=== PATIENT | female | born 1935 | race Caucasian/White ===

== ENCOUNTER 2017-02-01 16:11 | Inpatient (IN) | payer MEDICARE, BC ==
[2017-02-01] MEDS ORDERED: Ondansetron 4 MG Tab.DIS PO PRN (16:33)
[2017-02-01] MEDS ORDERED: Zolpidem 5 MG Tab PO PRN (16:33)
--- NOTE | 2017-02-01 17:21 | PCM.HP ---
H&P History of Present Illness - General Date of Service: 02/01/17 Admit Problem/Dx: Admission Diagnosis/Problem Admission Diagnosis/Problem Dyspnea Source of Information: Patient - History of Present Illness Initial Comments - Free Text/Narative: The patient is an 81-year-old lady with a history of hypertension. The patient has been complaining of increased lower extremity swelling which is moderate to severe associated with shortness of breath. Shortness of breath is worse with activity better with rest. She was seen by her primary care physician last Wednesday and was given diuretics but the swelling did not change significantly. She was noted to have atrial fibrillation in the clinic she is apparently a new finding. She denies cough, no fever no chest pain no abdominal pain. She lives independently in her home. - Related Data Allergies/Adverse Reactions: Allergies Allergy/AdvReac Type Severity Reaction Status Date / Time No Known Allergies Allergy Verified 02/01/17 16:48 Home Medications: Home Meds Aspirin [Alan Chewable] 81 mg PO DAILY 05/09/13 [History] Lisinopril 20 mg PO BID 05/09/13 [History] amLODIPine [Norvasc] 5 mg PO DAILY 05/09/13 [History] Acetaminophen [Acetaminophen Extra Strength] 1,000 mg PO BEDTIME 02/01/17 [ History] Acetaminophen [Acetaminophen Extra Strength] 1,000 mg PO DAILY 02/01/17 [History ] Ascorbate Calcium [Vitamin C] 500 mg PO BEDTIME 02/01/17 [History] Calc/D3/Mag/Zn/[employer]/[place] [Calcium 600 MG Plus Vit D] 600 mg PO BEDTIME [History] Escitalopram [Lexapro] 10 mg PO DAILY 02/01/17 [History] Multivitamin [One Daily] 1 each PO BEDTIME 02/01/17 [History] Polyethylene Glycol 3350 [MiraLAX] 8.5 gm PO BID 02/01/17 [History] Past Medical History HEENT History: Reports: Impaired Vision Cardiovascular History: Reports: High Cholesterol, Hypertension - Past Surgical History Musculoskeletal Surgical History: Reports: Knee Replacement Social & Family History - Family History Family Medical History: Noncontributory - Tobacco Use Smoking Status *Q: Never Smoker Second Hand Smoke Exposure: No - Caffeine Use Caffeine Use: Reports: Soda - Alcohol Use Days Per Week of Alcohol Use: 0 - Recreational Drug Use Recreational Drug Use: No H&P Review of Systems - Review of Systems: Review Of Systems: See Below General: Denies: Fever Pulmonary: Reports: Shortness of Breath. Denies: Wheezing, Pleuritic Chest Pain , Cough, Sputum Cardiovascular: Reports: Edema. Denies: Chest Pain Gastrointestinal: Denies: Abdominal Pain Genitourinary: Denies: Dysuria Exam - Exam Exam: See Below - Vital Signs Vital Signs: Last Vital Signs Temp 36.3 C 02/01/17 16:45 Pulse 86 02/01/17 16:45 Resp 20 02/01/17 16:45 BP 115/97 H 02/01/17 16:45 Pulse Ox 96 02/01/17 16:45 Weight: 95.164 kg - Exam General: Alert, Oriented Neck: Supple Lungs: Decreased Breath Sounds, Rales (b/l) Cardiovascular: Irregular Rhythm, Tachycardia GI/Abdominal Exam: Normal Bowel Sounds, Soft, Non-Tender, No Organomegaly, No Distention Extremities: Pedal Edema (b/l 3+ ) Skin: Warm, Dry Neuro Extensive - Mental Status: Alert, Oriented x3 Psychiatric: Alert, Normal Affect, Normal Mood - Patient Data Lab Results Last 24 hrs: Laboratory Results - last 24 hr 02/01/17 02/01/17 Range/Units 16:50 16:50 WBC 7.5 (5.0-10.0) 10^3/uL RBC 4.39 (4.2-5.4) 10^6/uL Hgb 13.8 (12.0-16.0) g/dL Hct 41.7 (37.0-47.0) % MCV 95.0 (80-100) fL MCH 31.4 (27.0-34.0) pg MCHC 33.1 (33.0-35.0) g/dL Plt Count 192 (150-450) 10^3/uL Neut % (Auto) 62.6 (42.2-75.2) % Lymph % (Auto) 24.8 (20.5-50.1) % [place] % (Auto) 10.6 H (2-8) % Eos % (Auto) 1.5 (1.0-3.0) % Baso % (Auto) 0.5 (0.0-1.0) % B-Natriuretic Peptide 207 H (0-100) pg/ml Result Diagrams: 08/28/17 16:50 02/01/17 16:50 Imaging Impressions Last 24 hrs: cxr per my reading shows cardiomegaly, b/l effusion ekg: per my reading shows rapid Afib with hr 150s labs from clini were reviewed: tsh normal , cr: 0.9 *Q Meaningful Use (ADM) - VTE *Q VTE Criteria *Q: - Stroke *Q Stroke Criteria *Q: - AMI *Q AMI Criteria *Q: - Problem List (1) Afib SNOMED Code(s): 70403222 ICD Code: I48.91 - UNSPECIFIED ATRIAL FIBRILLATION Status: Acute Current Visit: Yes (2) Tachycardia SNOMED Code(s): 6253449 ICD Code: R00.0 - TACHYCARDIA, UNSPECIFIED Status: Acute Current Visit: Yes (3) Edema SNOMED Code(s): 216444748, 429090441 ICD Code: R60.9 - EDEMA, UNSPECIFIED Status: Acute Current Visit: Yes (4) CHF (congestive heart failure) SNOMED Code(s): 39475929 ICD Code: I50.9 - HEART FAILURE, UNSPECIFIED Status: Acute Current Visit : Yes (5) HTN (hypertension) SNOMED Code(s): 23933348 ICD Code: I10 - ESSENTIAL (PRIMARY) HYPERTENSION Status: Acute Current Visit: Yes Problem List Initiated/Reviewed/Updated: Yes Orders Last 24hrs: Active Orders 24 hr Category Date Time Status Patient Status [ADT] Routine ADT 02/01/17 16:33 Active Antiembolic Devices [RC] PER UNIT ROUTINE Care 02/01/17 16:34 Active EKG Documentation Completion [RC] ROUTINE Care 02/01/17 16:31 Active Oxygen Therapy [RC] PRN Care 02/01/17 16:33 Active Peripheral IV Care [RC] . DIRECTED Care 02/01/17 16:34 Active Telemetry Monitoring [Cardiac Monitoring] [RC] . Care 02/01/17 16:32 Active DIRECTED Up With Assistance [RC] ASDIRECTED Care 02/01/17 16:33 Active VTE/DVT Education [RC] PER UNIT ROUTINE Care 02/01/17 16:33 Active Vital Signs [RC] Q4H Care 02/01/17 16:33 Active 2 Gram Sodium Diet [DIET] Diet 02/01/17 Dinner Active Chest 1V Frontal [CR] Routine Exams 02/01/17 16:31 Taken Echo Comp wo Cont [US] Routine Exams 02/02/17 09:00 Ordered B-TYPE NATRIURETIC PEPTIDE,BNP [CHEM] Routine Lab 02/01/17 16:50 Received BASIC METABOLIC PANEL,BMP [CHEM] AM Lab 02/02/17 05:15 Ordered BASIC METABOLIC PANEL,BMP [CHEM] Routine Lab 02/01/17 16:50 Received CBC WITH AUTO DIFF [HEME] AM Lab 02/02/17 05:15 Ordered INR,PT,PROTHROMBIN TIME [COAG] AM Lab 02/03/17 05:11 Ordered INR,PT,PROTHROMBIN TIME [COAG] AM Lab 02/04/17 05:11 Ordered INR,PT,PROTHROMBIN TIME [COAG] AM Lab 02/05/17 05:11 Ordered INR,PT,PROTHROMBIN TIME [COAG] AM Lab 02/06/17 05:11 Ordered INR,PT,PROTHROMBIN TIME [COAG] AM Lab 02/07/17 05:11 Ordered TROPONIN I [CHEM] Routine Lab 02/01/17 16:50 Received Acetaminophen [Tylenol Extra Strength] Med 02/01/17 21:00 Ordered 1,000 mg PO BEDTIME Acetaminophen [Tylenol Extra Strength] Med 02/02/17 09:00 Ordered 1,000 mg PO DAILY Acetaminophen [Tylenol] Med 02/01/17 16:33 Active 650 mg PO Q4H PRN Ascorbate Calcium [Vitamin C] Med 02/01/17 21:00 Ordered 500 mg PO BEDTIME Aspirin Med 02/02/17 09:00 Ordered 81 mg PO DAILY Escitalopram [Lexapro] Med 02/02/17 09:00 Ordered 10 mg PO DAILY Furosemide [Lasix] Med 02/01/17 21:00 Ordered 20 mg IVPUSH TID Heparin Sodium Med 02/01/17 22:00 Active 5,000 units SUBCUT Q8HR Lisinopril [Prinivil] Med 02/01/17 21:00 Ordered 20 mg PO BID Metoprolol Tartrate [Lopressor] Med 02/01/17 21:00 Ordered 25 mg PO BID Multivitamin [One Daily] Med 02/01/17 21:00 Ordered 1 each PO BEDTIME Ondansetron [Zofran ODT] Med 02/01/17 16:33 Active 4 mg PO Q6H PRN Polyethylene Glycol 3350 [MiraLAX] Med 02/01/17 21:00 Ordered 8.5 gm PO BID Potassium Chloride [Klor-Con 10] Med 02/02/17 07:00 Ordered 20 meq PO WITHBREAKFAST Sodium Chloride 0.9% [Saline Flush] Med 02/01/17 16:33 Active 10 ml FLUSH ASDIRECTED PRN Warfarin Pharmacy to Dose [Pharmacy to Dose - Warfarin] Med 02/02/17 08:00 Ordered 1 dose .XX ASDIRECTED Zolpidem [Ambien] Med 02/01/17 16:33 Active 5 mg PO BEDTIME PRN oxyCODONE Med 02/01/17 16:33 Active 5 mg PO Q4H PRN Antiembolic Hose [OM.PC] Per Unit Routine Oth 02/01/17 16:34 Ordered Peripheral IV Insertion Adult [OM.PC] Routine Oth 02/01/17 16:33 Ordered Saline Lock Insert [OM.PC] Routine Oth 02/01/17 16:33 Ordered Resuscitation Status Routine Resus Stat 02/01/17 16:33 Ordered Medication Orders Acetaminophen (Tylenol) 650 mg PO Q4H PRN PRN Reason: Pain (Mild 1-3)/fever Acetaminophen (Tylenol Extra Strength) 1,000 mg PO BEDTIME [facility] Acetaminophen (Tylenol Extra Strength) 1,000 mg PO DAILY@1400 [facility] Aspirin (Aspirin) 81 mg PO DAILY [facility] Escitalopram Oxalate (Lexapro) 10 mg PO DAILY [facility] Furosemide (Lasix) 20 mg IVPUSH TID RAD[facility] Heparin Sodium (Porcine) (Heparin Sodium) 5,000 units SUBCUT Q8HR [facility] Lisinopril (Prinivil) 20 mg PO BID [facility] Metoprolol Tartrate (Lopressor) 25 mg PO BID [facility] Non-Formulary Medication (Ascorbate Calcium [Vitamin C]) 500 mg PO BEDTIME RAD[facility] Non-Formulary Medication (Multivitamin [One Daily]) 1 each PO BEDTIME RAD[facility] Ondansetron HCl (Zofran Odt) 4 mg PO Q6H PRN PRN Reason: nausea, able to take PO Oxycodone HCl (Oxycodone) 5 mg PO Q4H PRN PRN Reason: Pain (moderate 4-6) Polyethylene Glycol (Miralax) 8.5 gm PO BID RADHA Potassium Chloride (Klor-Con 10) 20 meq PO WITHBREAKFAST RAD[facility] Sodium Chloride (Saline Flush) 10 ml FLUSH ASDIRECTED PRN PRN Reason: Keep Vein Open Warfarin Sodium (Pharmacy To Dose - Warfarin) 1 dose .XX ASDIRECTED [facility] Zolpidem Tartrate (Ambien) 5 mg PO BEDTIME PRN PRN Reason: Sleep Assessment/Plan Comment:: The patient is an 81-year-old lady with a history of hypertension. The patient has been complaining of increased lower extremity swelling which is moderate to severe associated with shortness of breath. Shortness of breath is worse with activity better with rest. She was seen by her primary care physician last Wednesday and was given diuretics but the swelling did not change significantly. She was noted to have atrial fibrillation in the clinic she is apparently a new finding. She denies cough, no fever no chest pain no abdominal pain. She lives independently in her home. #1 massive lower extremity edema, cardiomegaly, bilateral pleural effusion Likely due to acute congestive heart failure Will obtain an echocardiogram for further characterization Will start IV Lasix 3 times a day Add potassium supplement Follow electrolytes and renal function test with that Continue BIJU inhibitor #2 rapid atrial fibrillation This might be the reason for the congestive heart failure Will start metoprolol for rate control Monitor on telemetry and adjust metoprolol as needed #3 thromboembolic risk with atrial fibrillation Start the patient on Coumadin We will stop the heparin when the INR is coming up #4 hypertension Will continue lisinopril Stop Norvasc to make space for diuretics and beta moy #5 DVT prophylaxis will be with heparin Stop the heparin when INR is coming up #6 CODE STATUS was discussed with the patient. She would like to be DNR.
[2017-02-01] MEDS ORDERED: Metoprolol Tartrate 25 MG Tab PO ONE (18:05)
[2017-02-01] MEDS ORDERED: Metoprolol Tartrate 5 MG/5 ML SDV IVPUSH ONE ×2 (18:27→19:31)
[2017-02-01] MEDS: Acetaminophen 325 MG Tab PO PRN (19:28)
[2017-02-01] MEDS: Sodium Chloride 0.9% 10 ML Syringe FLUSH PRN (19:48)
[2017-02-01] MEDS: oxyCODONE 5 MG Tab PO PRN (20:37)
[2017-02-01] MEDS: Lisinopril 20 MG Tab PO SCH (20:38)
[2017-02-01] MEDS: Ascorbic Acid 500 MG Tab PO SCH (20:39)
[2017-02-01] MEDS: Multivitamins,Therapeutic Tab PO SCH (20:39)
[2017-02-01] MEDS: Polyethylene Glycol 3350 Powder 17 GM Packet PO SCH (20:42)
[2017-02-01] MEDS: Furosemide 20 MG/2 ML VIAL IVPUSH SCH (20:43)
[2017-02-01] MEDS: Acetaminophen 500 MG Tab PO SCH (20:43)
[2017-02-01] MEDS ORDERED: Metoprolol Tartrate 25 MG Tab PO SCH (21:00)
[2017-02-01] MEDS ORDERED: Aspirin 81 MG Tab.Chew PO ONE (21:43)
[2017-02-01] MEDS ORDERED: Heparin Sodium 5,000 Units/ML Vial SUBCUT SCH (22:00)
[2017-02-02] MEDS: oxyCODONE 5 MG Tab PO PRN ×2 (00:36→05:18)
[2017-02-02] MEDS ORDERED: Metoprolol Tartrate 5 MG/5 ML SDV IVPUSH ONE ×2 (01:41→07:21)
[2017-02-02] MEDS: Sodium Chloride 0.9% 10 ML Syringe FLUSH PRN ×2 (02:08→08:00)
[2017-02-02] MEDS: Heparin Sodium/D5W 25,000 UNITS/500 ML BAG IV SCH (02:29)
[2017-02-02] MEDS: Acetaminophen 325 MG Tab PO PRN (03:55)
[2017-02-02] MEDS: Potassium Chloride 10 MEQ Tab.ER PO SCH ×2 (06:30→07:37)
[2017-02-02] MEDS: Lisinopril 20 MG Tab PO SCH (08:00)
[2017-02-02] MEDS: Metoprolol Tartrate 25 MG Tab PO SCH ×2 (08:00→20:08)
[2017-02-02] MEDS: Polyethylene Glycol 3350 Powder 17 GM Packet PO SCH ×2 (09:39→20:07)
[2017-02-02] MEDS: Escitalopram 10 MG Tab PO SCH (09:39)
[2017-02-02] MEDS: Furosemide 20 MG/2 ML VIAL IVPUSH SCH ×2 (09:39→20:08)
[2017-02-02] MEDS: Aspirin 81 MG Tab.Chew PO SCH (09:39)
[2017-02-02] MEDS ORDERED: Digoxin 500 MCG/2 ML Amp IVPUSH ONE ×2 (11:08→18:00)
--- NOTE | 2017-02-02 11:17 | PCM.PN ---
- General Info Date of Service: 02/02/17 Admission Dx/Problem (Free Text): Admission Diagnosis/Problem Admission Diagnosis/Problem Dyspnea Subjective Update: Overnight continue to be tachycardic. Received multiple doses of IV metoprolol along with oral metoprolol. Continues to have significant leg swelling, mild shortness of breath. [place] some chest discomfort in the evening received aspirin. Was started on IV heparin drip. No chest pain this morning, no abdominal pain, no cough, no fever. - Review of Systems General: Reports: Weakness. Denies: Fever Pulmonary: Reports: Shortness of Breath Cardiovascular: Reports: Edema. Denies: Chest Pain Gastrointestinal: Denies: Abdominal Pain Genitourinary: Denies: Dysuria - Patient Data Vitals - Most Recent: Last Vital Signs Temp 36.5 C 02/02/17 10:41 Pulse 84 02/02/17 10:41 Resp 20 02/02/17 10:41 BP 92/75 02/02/17 10:41 Pulse Ox 97 02/02/17 10:41 Weight - Most Recent: 95.164 kg I&O - Last 24 Hours: Intake & Output 02/01/17 02/02/17 02/02/17 22:59 06:59 14:59 Intake Total 515 Output Total 475 600 Balance -475 -85 Lab Results Last 24 Hours: Laboratory Results - last 24 hr 02/01/17 02/01/17 02/02/17 Range/Units 16:50 16:50 02:40 WBC 7.5 (5.0-10.0) 10^3/uL RBC 4.39 (4.2-5.4) 10^6/uL Hgb 13.8 (12.0-16.0) g/dL Hct 41.7 (37.0-47.0) % MCV 95.0 (80-100) fL MCH 31.4 (27.0-34.0) pg MCHC 33.1 (33.0-35.0) g/dL Plt Count 192 (150-450) 10^3/uL Neut % (Auto) 62.6 (42.2-75.2) % Lymph % (Auto) 24.8 (20.5-50.1) % [place] % (Auto) 10.6 H (2-8) % Eos % (Auto) 1.5 (1.0-3.0) % Baso % (Auto) 0.5 (0.0-1.0) % PT (9.0-12.0) SEC INR (0.9-1.2) APTT 28.2 (22.0-34.0) SEC Sodium 137 (135-145) mmol/L Potassium 4.5 (3.6-5.0) mmol/L Chloride 101 (101-111) mmol/L Carbon Dioxide 25.0 (21.0-31.0) mmol/L Anion Gap 15.5 BUN 20 H (7-18) mg/dL Creatinine 1.0 (0.6-1.3) mg/dL Est Cr Clr Drug Dosing 43.00 mL/min Estimated GFR (MDRD) 53 Glucose 101 (74-105) mg/dL Calcium 9.5 (8.4-10.2) mg/dl Troponin I 0.02 (0.00-0.02) ng/ml B-Natriuretic Peptide 207 H (0-100) pg/ml 02/02/17 02/02/17 02/02/17 Range/Units 08:35 08:35 08:35 WBC 7.3 (5.0-10.0) 10^3/uL RBC 4.11 L (4.2-5.4) 10^6/uL Hgb 13.0 (12.0-16.0) g/dL Hct 39.5 (37.0-47.0) % MCV 96.1 (80-100) fL MCH 31.6 (27.0-34.0) pg MCHC 32.9 L (33.0-35.0) g/dL Plt Count 166 (150-450) 10^3/uL Neut % (Auto) 74.3 (42.2-75.2) % Lymph % (Auto) 16.4 L (20.5-50.1) % [place] % (Auto) 8.2 H (2-8) % Eos % (Auto) 0.7 L (1.0-3.0) % Baso % (Auto) 0.4 (0.0-1.0) % PT (9.0-12.0) SEC INR (0.9-1.2) APTT 79.5 H (22.0-34.0) SEC Sodium 132 L (135-145) mmol/L Potassium 5.2 H (3.6-5.0) mmol/L Chloride 98 L (101-111) mmol/L Carbon Dioxide 25.0 (21.0-31.0) mmol/L Anion Gap 14.2 BUN 23 H (7-18) mg/dL Creatinine 1.0 (0.6-1.3) mg/dL Est Cr Clr Drug Dosing 43.00 mL/min Estimated GFR (MDRD) 53 Glucose 141 H (74-105) mg/dL Calcium 8.9 (8.4-10.2) mg/dl Troponin I (0.00-0.02) ng/ml B-Natriuretic Peptide (0-100) pg/ml 02/02/17 Range/Units 08:35 WBC (5.0-10.0) 10^3/uL RBC (4.2-5.4) 10^6/uL Hgb (12.0-16.0) g/dL Hct (37.0-47.0) % MCV (80-100) fL MCH (27.0-34.0) pg MCHC (33.0-35.0) g/dL Plt Count (150-450) 10^3/uL Neut % (Auto) (42.2-75.2) % Lymph % (Auto) (20.5-50.1) % [place] % (Auto) (2-8) % Eos % (Auto) (1.0-3.0) % Baso % (Auto) (0.0-1.0) % PT 11.5 (9.0-12.0) SEC INR 1.1 (0.9-1.2) APTT (22.0-34.0) SEC Sodium (135-145) mmol/L Potassium (3.6-5.0) mmol/L Chloride (101-111) mmol/L Carbon Dioxide (21.0-31.0) mmol/L Anion Gap BUN (7-18) mg/dL Creatinine (0.6-1.3) mg/dL Est Cr Clr Drug Dosing mL/min Estimated GFR (MDRD) Glucose (74-105) mg/dL Calcium (8.4-10.2) mg/dl Troponin I (0.00-0.02) ng/ml B-Natriuretic Peptide (0-100) pg/ml Med Orders - Current: Current Medications Acetaminophen (Tylenol) 650 mg PO Q4H PRN PRN Reason: Pain (Mild 1-3)/fever Last Admin: 02/02/17 03:55 Dose: 650 mg Acetaminophen (Tylenol Extra Strength) 1,000 mg PO BEDTIME [facility] Last Admin: 02/01/17 20:43 Dose: Not Given Acetaminophen (Tylenol Extra Strength) 1,000 mg PO DAILY@1400 [facility] Ascorbic Acid (Vitamin C) 500 mg PO BEDTIME [facility] Last Admin: 02/01/17 20:39 Dose: 500 mg Aspirin (Aspirin) 81 mg PO DAILY [facility] Last Admin: 02/02/17 09:39 Dose: 81 mg Digoxin (Lanoxin) 250 mcg IVPUSH ONETIME ONE Stop: 02/02/17 18:01 Digoxin (Lanoxin) 125 mcg PO DAILY [facility] Escitalopram Oxalate (Lexapro) 10 mg PO DAILY [facility] Last Admin: 02/02/17 09:39 Dose: 10 mg Furosemide (Lasix) 20 mg IVPUSH BID [facility] Heparin Sodium/Dextrose (Heparin 25,000 Units In D5w 500 Ml) 25,000 units in 500 mls @ 0 mls/hr IV TITRATE RADHA; 12 UNITS/KG/HR PRN Reason: Protocol Last Titration: 02/02/17 09:32 Dose: 9.98 units/kg/hr, 19 mls/hr Metoprolol Tartrate (Lopressor) 50 mg PO BID [facility] Last Admin: 02/02/17 08:00 Dose: 50 mg Multivitamins (Thera) 1 each PO BEDTIME [facility] Last Admin: 02/01/17 20:39 Dose: 1 each Ondansetron HCl (Zofran Odt) 4 mg PO Q6H PRN PRN Reason: nausea, able to take PO Last Admin: 02/02/17 07:16 Dose: 4 mg Oxycodone HCl (Oxycodone) 5 mg PO Q4H PRN PRN Reason: Pain (moderate 4-6) Last Admin: 02/02/17 05:18 Dose: 5 mg Polyethylene Glycol (Miralax) 8.5 gm PO BID [facility] Last Admin: 02/02/17 09:39 Dose: 8.5 gm Potassium Chloride (Klor-Con 10) 20 meq PO WITHBREAKFAST [facility] Last Admin: 02/02/17 07:37 Dose: Not Given Sodium Chloride (Saline Flush) 10 ml FLUSH ASDIRECTED PRN PRN Reason: Keep Vein Open Last Admin: 02/02/17 08:00 Dose: 10 ml Warfarin Sodium (Pharmacy To Dose - Warfarin) 1 dose .XX ASDIRECTED [facility] Warfarin Sodium (Coumadin) 5 mg PO ONETIME ONE Stop: 02/02/17 14:01 Zolpidem Tartrate (Ambien) 5 mg PO BEDTIME PRN PRN Reason: Sleep Discontinued Medications Aspirin (Aspirin) 324 mg PO ONETIME ONE Stop: 02/01/17 21:44 Last Admin: 02/01/17 22:00 Dose: 324 mg Digoxin (Lanoxin) 500 mcg IVPUSH ONETIME ONE Stop: 02/02/17 11:09 Furosemide (Lasix) 20 mg IVPUSH TID [facility] Last Admin: 02/02/17 09:39 Dose: 20 mg Heparin Sodium (Porcine) (Heparin Sodium) 5,000 units SUBCUT Q8HR [facility] Last Admin: 02/01/17 21:36 Dose: 5,000 units Lisinopril (Prinivil) 20 mg PO BID [facility] Last Admin: 02/02/17 08:00 Dose: Not Given Metoprolol Tartrate (Lopressor) 25 mg PO BID [facility] Last Admin: 02/01/17 20:38 Dose: 25 mg Metoprolol Tartrate (Lopressor) 25 mg PO ONETIME ONE Stop: 02/01/17 18:06 Last Admin: 02/01/17 18:20 Dose: 25 mg Metoprolol Tartrate (Lopressor) 2.5 mg IVPUSH ONETIME ONE Stop: 02/01/17 18:28 Last Admin: 02/01/17 18:38 Dose: 2.5 mg Metoprolol Tartrate (Lopressor) 2.5 mg IVPUSH ONETIME ONE Stop: 02/01/17 19:32 Last Admin: 02/01/17 19:49 Dose: 2.5 mg Metoprolol Tartrate (Lopressor) 5 mg IVPUSH ONETIME ONE Stop: 02/02/17 01:42 Last Admin: 02/02/17 02:08 Dose: 5 mg Metoprolol Tartrate (Lopressor) 5 mg IVPUSH ONETIME ONE Stop: 02/02/17 07:22 Last Admin: 02/02/17 07:58 Dose: 5 mg - Exam General: Alert, Oriented Neck: Supple Lungs: Normal Respiratory Effort, Rales (Basilar) Cardiovascular: Irregular Rhythm, Tachycardia GI/Abdominal Exam: Normal Bowel Sounds, Soft, Non-Tender Extremities: Pedal Edema (Bilateral 2-3+) - Problem List & Annotations (1) Afib SNOMED Code(s): 62916588 Code(s): I48.91 - UNSPECIFIED ATRIAL FIBRILLATION Status: Acute Current Visit: Yes (2) Tachycardia SNOMED Code(s): 3505403 Code(s): R00.0 - TACHYCARDIA, UNSPECIFIED Status: Acute Current Visit: Yes (3) Edema SNOMED Code(s): 238053315, 826806958 Code(s): R60.9 - EDEMA, UNSPECIFIED Status: Acute Current Visit: Yes (4) CHF (congestive heart failure) SNOMED Code(s): 74252821 Code(s): I50.9 - HEART FAILURE, UNSPECIFIED Status: Acute Current Visit: Yes (5) HTN (hypertension) SNOMED Code(s): 43083915 Code(s): I10 - ESSENTIAL (PRIMARY) HYPERTENSION Status: Acute Current Visit: Yes - Problem List Review Problem List Initiated/Reviewed/Updated: Yes - My Orders Last 24 Hours: My Active Orders 02/01/17 16:32 Telemetry Monitoring [Cardiac Monitoring] [RC] 02/01/17 16:33 Patient Status [ADT] Routine Oxygen Therapy [RC] PRN Up With Assistance [RC] ASDIRECTED Vital Signs [RC] Q4H Acetaminophen [Tylenol] 650 mg PO Q4H PRN Ondansetron [Zofran ODT] 4 mg PO Q6H PRN Sodium Chloride 0.9% [Saline Flush] 10 ml FLUSH ASDIRECTED PRN Zolpidem [Ambien] 5 mg PO BEDTIME PRN oxyCODONE 5 mg PO Q4H PRN Peripheral IV Insertion Adult [OM.PC] Routine Saline Lock Insert [OM.PC] Routine 02/01/17 16:34 Antiembolic Devices [RC] PER UNIT ROUTINE Antiembolic Hose [OM.PC] Per Unit Routine 02/01/17 17:27 Code Status [Resuscitation Status] Routine 02/01/17 21:00 Acetaminophen [Tylenol Extra Strength] 1,000 mg PO BEDTIME Ascorbic Acid [Vitamin C] 500 mg PO BEDTIME Multivitamins,Therapeutic [Thera] 1 each PO BEDTIME Polyethylene Glycol 3350 [MiraLAX] 8.5 gm PO BID 02/01/17 Dinner 2 Gram Sodium Diet [DIET] 02/02/17 01:41 Metoprolol Tartrate [Lopressor] 50 mg PO BID 02/02/17 01:45 Heparin Sodium/D5W [Heparin 25,000 Units in D5W 500 ML] 25,000 units in 500 ml IV TITRATE 02/02/17 07:00 Potassium Chloride [Klor-Con 10] 20 meq PO WITHBREAKFAST 02/02/17 07:22 Communication Order [RC] ONETIME 02/02/17 08:00 Warfarin Pharmacy to Dose [Pharmacy to Dose - Warfarin] 1 dose .XX ASDIRECTED 02/02/17 09:00 Aspirin 81 mg PO DAILY Escitalopram [Lexapro] 10 mg PO DAILY 02/02/17 14:00 Acetaminophen [Tylenol Extra Strength] 1,000 mg PO DAILY@1400 Warfarin [Coumadin] 5 mg PO ONETIME ONE 02/02/17 15:00 BASIC METABOLIC PANEL,BMP [CHEM] Timed 02/02/17 15:30 PTT,PARTIAL THROMBOPLSTIN TIME [COAG] Routine 02/02/17 18:00 Digoxin [Lanoxin] 250 mcg IVPUSH ONETIME ONE 02/02/17 21:00 Furosemide [Lasix] 20 mg IVPUSH BID 02/03/17 05:11 INR,PT,PROTHROMBIN TIME [COAG] AM 02/03/17 05:15 BASIC METABOLIC PANEL,BMP [CHEM] AM CBC WITH AUTO DIFF [HEME] AM 02/03/17 09:00 Digoxin [Lanoxin] 125 mcg PO DAILY 02/04/17 05:11 INR,PT,PROTHROMBIN TIME [COAG] AM 02/05/17 05:11 INR,PT,PROTHROMBIN TIME [COAG] AM 02/06/17 05:11 INR,PT,PROTHROMBIN TIME [COAG] AM 02/07/17 05:11 INR,PT,PROTHROMBIN TIME [COAG] AM - Plan Plan:: The patient is an 81-year-old lady with a history of hypertension. The patient has been complaining of increased lower extremity swelling which is moderate to severe associated with shortness of breath. Shortness of breath is worse with activity better with rest. She was seen by her primary care physician last Wednesday and was given diuretics but the swelling did not change significantly. She was noted to have atrial fibrillation in the clinic which is apparently a new finding. She denies cough, no fever no chest pain no abdominal pain. She lives independently in her home. #1 massive lower extremity edema, cardiomegaly, bilateral pleural effusion Likely due to acute congestive heart failure pending echocardiogram for further characterization Will start IV Lasix decrease to BID due to hypotension stop potassium supplement due to hyperkalemia Follow electrolytes and renal function test with that hold BIJU inhibitor due to hyoperkalemia and lower BPs Repeat basic metabolic panel to evaluate hyperkalemia in a few hours #2 rapid atrial fibrillation This might be the reason for the congestive heart failure continue IV metoprolol and PO metoprolol for rate control add digoxin - start with IV loading Monitor on telemetry and adjust metoprolol as needed #3 thromboembolic risk with atrial fibrillation Started the patient on Coumadin Started weight based heparin nomogram #4 h/o hypertension Now on the lower side Stop Norvasc Stop lisinopril #5 DVT prophylaxis will be with heparin weight-based nomogram Stop the heparin when INR is coming up #6 CODE STATUS was discussed with the patient. She would like to be DNR. Continue to monitor on telemetry
[2017-02-02] MEDS ORDERED: Warfarin 5 MG Tab PO ONE (14:00)
[2017-02-02] MEDS: Acetaminophen 500 MG Tab PO SCH ×2 (15:19→20:07)
[2017-02-02] MEDS ORDERED: Sodium Polystyrene Sulfonate 15 GM/60 ML Susp 60 ML Bot PO ONE (16:55)
[2017-02-02] MEDS: Multivitamins,Therapeutic Tab PO SCH (20:07)
[2017-02-02] MEDS: Ascorbic Acid 500 MG Tab PO SCH (20:07)
[2017-02-03] MEDS: Heparin Sodium/D5W 25,000 UNITS/500 ML BAG IV SCH (07:27)
[2017-02-03] MEDS: Polyethylene Glycol 3350 Powder 17 GM Packet PO SCH ×2 (09:37→20:54)
[2017-02-03] MEDS: Furosemide 20 MG/2 ML VIAL IVPUSH SCH ×2 (09:38→20:55)
[2017-02-03] MEDS: Metoprolol Tartrate 25 MG Tab PO SCH ×2 (09:39→20:48)
[2017-02-03] MEDS: Digoxin 125 MCG Tab PO SCH (09:39)
[2017-02-03] MEDS: Aspirin 81 MG Tab.Chew PO SCH (09:39)
[2017-02-03] MEDS: Escitalopram 10 MG Tab PO SCH (09:39)
--- NOTE | 2017-02-03 09:46 | PCM.PN ---
- General Info Date of Service: 02/03/17 Admission Dx/Problem (Free Text): Admission Diagnosis/Problem Admission Diagnosis/Problem Dyspnea Subjective Update: Tachycardia has improved. Still has episodes of tachycardia with activity. Heart rate up to 130s, Was started on digoxin Continues to have significant leg swelling, mild shortness of breath. No further chest pain. No apparent bleeding with the heparin drip No chest pain this morning, no abdominal pain, no cough, no fever. - Review of Systems General: Denies: Fever, Weakness Pulmonary: Reports: Shortness of Breath. Denies: Wheezing (Mild) Cardiovascular: Denies: Chest Pain Gastrointestinal: Denies: Abdominal Pain Genitourinary: Denies: Dysuria Neurological: Denies: Confusion - Patient Data Vitals - Most Recent: Last Vital Signs Temp 36.6 C 02/03/17 07:00 Pulse 124 H 02/03/17 09:39 Resp 20 02/03/17 07:00 BP 116/62 02/03/17 09:39 Pulse Ox 97 02/03/17 07:00 Weight - Most Recent: 95.164 kg I&O - Last 24 Hours: Intake & Output 02/02/17 02/03/17 02/03/17 22:59 06:59 14:59 Intake Total 485 185 Output Total 1000 2000 Balance -515 -1815 Lab Results Last 24 Hours: Laboratory Results - last 24 hr 02/02/17 02/02/17 02/02/17 Range/Units 08:35 15:30 15:30 WBC (5.0-10.0) 10^3/uL RBC (4.2-5.4) 10^6/uL Hgb (12.0-16.0) g/dL Hct (37.0-47.0) % MCV (80-100) fL MCH (27.0-34.0) pg MCHC (33.0-35.0) g/dL Plt Count (150-450) 10^3/uL Neut % (Auto) (42.2-75.2) % Lymph % (Auto) (20.5-50.1) % [place] % (Auto) (2-8) % Eos % (Auto) (1.0-3.0) % Baso % (Auto) (0.0-1.0) % PT 11.5 (9.0-12.0) SEC INR 1.1 (0.9-1.2) APTT 80.8 H (22.0-34.0) SEC Sodium 131 L (135-145) mmol/L Potassium 5.3 H (3.6-5.0) mmol/L Chloride 97 L (101-111) mmol/L Carbon Dioxide 26.0 (21.0-31.0) mmol/L Anion Gap 13.3 BUN 25 H (7-18) mg/dL Creatinine 1.2 (0.6-1.3) mg/dL Est Cr Clr Drug Dosing 35.83 mL/min Estimated GFR (MDRD) 43 Glucose 104 (74-105) mg/dL Calcium 8.9 (8.4-10.2) mg/dl 02/03/17 02/03/17 02/03/17 Range/Units 06:09 06:09 06:09 WBC 6.3 (5.0-10.0) 10^3/uL RBC 4.00 L (4.2-5.4) 10^6/uL Hgb 12.5 (12.0-16.0) g/dL Hct 38.7 (37.0-47.0) % MCV 96.8 (80-100) fL MCH 31.3 (27.0-34.0) pg MCHC 32.3 L (33.0-35.0) g/dL Plt Count 160 (150-450) 10^3/uL Neut % (Auto) 49.8 (42.2-75.2) % Lymph % (Auto) 34.4 (20.5-50.1) % [place] % (Auto) 11.4 H (2-8) % Eos % (Auto) 3.8 H (1.0-3.0) % Baso % (Auto) 0.6 (0.0-1.0) % PT 12.4 H (9.0-12.0) SEC INR 1.2 (0.9-1.2) APTT (22.0-34.0) SEC Sodium 134 L (135-145) mmol/L Potassium 4.4 (3.6-5.0) mmol/L Chloride 99 L (101-111) mmol/L Carbon Dioxide 26.0 (21.0-31.0) mmol/L Anion Gap 13.4 BUN 24 H (7-18) mg/dL Creatinine 1.1 (0.6-1.3) mg/dL Est Cr Clr Drug Dosing 39.09 mL/min Estimated GFR (MDRD) 47 Glucose 89 (74-105) mg/dL Calcium 8.5 (8.4-10.2) mg/dl 02/03/17 Range/Units 06:09 WBC (5.0-10.0) 10^3/uL RBC (4.2-5.4) 10^6/uL Hgb (12.0-16.0) g/dL Hct (37.0-47.0) % MCV (80-100) fL MCH (27.0-34.0) pg MCHC (33.0-35.0) g/dL Plt Count (150-450) 10^3/uL Neut % (Auto) (42.2-75.2) % Lymph % (Auto) (20.5-50.1) % [place] % (Auto) (2-8) % Eos % (Auto) (1.0-3.0) % Baso % (Auto) (0.0-1.0) % PT (9.0-12.0) SEC INR (0.9-1.2) APTT 61.3 H (22.0-34.0) SEC Sodium (135-145) mmol/L Potassium (3.6-5.0) mmol/L Chloride (101-111) mmol/L Carbon Dioxide (21.0-31.0) mmol/L Anion Gap BUN (7-18) mg/dL Creatinine (0.6-1.3) mg/dL Est Cr Clr Drug Dosing mL/min Estimated GFR (MDRD) Glucose (74-105) mg/dL Calcium (8.4-10.2) mg/dl Med Orders - Current: Current Medications Acetaminophen (Tylenol) 650 mg PO Q4H PRN PRN Reason: Pain (Mild 1-3)/fever Last Admin: 02/02/17 03:55 Dose: 650 mg Acetaminophen (Tylenol Extra Strength) 1,000 mg PO BEDTIME [facility] Last Admin: 02/02/17 20:07 Dose: 1,000 mg Acetaminophen (Tylenol Extra Strength) 1,000 mg PO DAILY@1400 [facility] Last Admin: 02/02/17 15:19 Dose: 1,000 mg Ascorbic Acid (Vitamin C) 500 mg PO BEDTIME [facility] Last Admin: 02/02/17 20:07 Dose: 500 mg Aspirin (Aspirin) 81 mg PO DAILY [facility] Last Admin: 02/03/17 09:39 Dose: 81 mg Digoxin (Lanoxin) 125 mcg PO DAILY [facility] Last Admin: 02/03/17 09:39 Dose: 125 mcg Escitalopram Oxalate (Lexapro) 10 mg PO DAILY [facility] Last Admin: 02/03/17 09:39 Dose: 10 mg Furosemide (Lasix) 20 mg IVPUSH BID [facility] Last Admin: 02/03/17 09:38 Dose: 20 mg Heparin Sodium/Dextrose (Heparin 25,000 Units In D5w 500 Ml) 25,000 units in 500 mls @ 0 mls/hr IV TITRATE [facility]; 12 UNITS/KG/HR PRN Reason: Protocol Last Admin: 02/03/17 07:27 Dose: 7.98 units/kg/hr, 15.2 mls/hr Metoprolol Tartrate (Lopressor) 75 mg PO BID [facility] Multivitamins (Thera) 1 each PO BEDTIME [facility] Last Admin: 02/02/17 20:07 Dose: 1 each Ondansetron HCl (Zofran Odt) 4 mg PO Q6H PRN PRN Reason: nausea, able to take PO Last Admin: 02/02/17 07:16 Dose: 4 mg Oxycodone HCl (Oxycodone) 5 mg PO Q4H PRN PRN Reason: Pain (moderate 4-6) Last Admin: 02/02/17 05:18 Dose: 5 mg Polyethylene Glycol (Miralax) 8.5 gm PO BID [facility] Last Admin: 02/03/17 09:37 Dose: 8.5 gm Sodium Chloride (Saline Flush) 10 ml FLUSH ASDIRECTED PRN PRN Reason: Keep Vein Open Last Admin: 02/02/17 08:00 Dose: 10 ml Warfarin Sodium (Pharmacy To Dose - Warfarin) 1 dose .XX ASDIRECTED [facility] Warfarin Sodium (Coumadin) 5 mg PO ONETIME ONE Stop: 02/03/17 14:01 Zolpidem Tartrate (Ambien) 5 mg PO BEDTIME PRN PRN Reason: Sleep Discontinued Medications Aspirin (Aspirin) 324 mg PO ONETIME ONE Stop: 02/01/17 21:44 Last Admin: 02/01/17 22:00 Dose: 324 mg Digoxin (Lanoxin) 500 mcg IVPUSH ONETIME ONE Stop: 02/02/17 11:09 Last Admin: 02/02/17 11:57 Dose: 500 mcg Digoxin (Lanoxin) 250 mcg IVPUSH ONETIME ONE Stop: 02/02/17 18:01 Last Admin: 02/02/17 17:28 Dose: 250 mcg Furosemide (Lasix) 20 mg IVPUSH TID [facility] Last Admin: 02/02/17 09:39 Dose: 20 mg Heparin Sodium (Porcine) (Heparin Sodium) 5,000 units SUBCUT Q8HR [facility] Last Admin: 02/01/17 21:36 Dose: 5,000 units Lisinopril (Prinivil) 20 mg PO BID [facility] Last Admin: 02/02/17 08:00 Dose: Not Given Metoprolol Tartrate (Lopressor) 25 mg PO BID [facility] Last Admin: 02/01/17 20:38 Dose: 25 mg Metoprolol Tartrate (Lopressor) 25 mg PO ONETIME ONE Stop: 02/01/17 18:06 Last Admin: 02/01/17 18:20 Dose: 25 mg Metoprolol Tartrate (Lopressor) 2.5 mg IVPUSH ONETIME ONE Stop: 02/01/17 18:28 Last Admin: 02/01/17 18:38 Dose: 2.5 mg Metoprolol Tartrate (Lopressor) 2.5 mg IVPUSH ONETIME ONE Stop: 02/01/17 19:32 Last Admin: 02/01/17 19:49 Dose: 2.5 mg Metoprolol Tartrate (Lopressor) 50 mg PO BID [facility] Last Admin: 02/03/17 09:39 Dose: 50 mg Metoprolol Tartrate (Lopressor) 5 mg IVPUSH ONETIME ONE Stop: 02/02/17 01:42 Last Admin: 02/02/17 02:08 Dose: 5 mg Metoprolol Tartrate (Lopressor) 5 mg IVPUSH ONETIME ONE Stop: 02/02/17 07:22 Last Admin: 02/02/17 07:58 Dose: 5 mg Potassium Chloride (Klor-Con 10) 20 meq PO WITHBREAKFAST [facility] Last Admin: 02/02/17 07:37 Dose: Not Given Sodium Polystyrene Sulfonate (Kayexalate) 30 gm PO ONETIME ONE Stop: 02/02/17 16:56 Last Admin: 02/02/17 17:28 Dose: 30 gm Warfarin Sodium (Coumadin) 5 mg PO ONETIME ONE Stop: 02/02/17 14:01 Last Admin: 02/02/17 15:19 Dose: 5 mg - Exam Quality Assessment: No: Supplemental Oxygen General: Alert, Oriented Lungs: Normal Respiratory Effort, Rales Cardiovascular: Irregular Rhythm. No: Tachycardia GI/Abdominal Exam: Normal Bowel Sounds, Soft, Non-Tender Extremities: Pedal Edema - Problem List & Annotations (1) Afib SNOMED Code(s): 08589431 Code(s): I48.91 - UNSPECIFIED ATRIAL FIBRILLATION Status: Acute Current Visit: Yes (2) Tachycardia SNOMED Code(s): 1335527 Code(s): R00.0 - TACHYCARDIA, UNSPECIFIED Status: Acute Current Visit: Yes (3) Edema SNOMED Code(s): 486502022, 217263540 Code(s): R60.9 - EDEMA, UNSPECIFIED Status: Acute Current Visit: Yes (4) CHF (congestive heart failure) SNOMED Code(s): 35500337 Code(s): I50.9 - HEART FAILURE, UNSPECIFIED Status: Acute Current Visit: Yes (5) HTN (hypertension) SNOMED Code(s): 46759404 Code(s): I10 - ESSENTIAL (PRIMARY) HYPERTENSION Status: Acute Current Visit: Yes - Problem List Review Problem List Initiated/Reviewed/Updated: Yes - My Orders Last 24 Hours: My Active Orders 02/02/17 09:00 Aspirin 81 mg PO DAILY Escitalopram [Lexapro] 10 mg PO DAILY 02/02/17 14:00 Acetaminophen [Tylenol Extra Strength] 1,000 mg PO DAILY@1400 02/02/17 21:00 Furosemide [Lasix] 20 mg IVPUSH BID 02/03/17 09:00 Digoxin [Lanoxin] 125 mcg PO DAILY 02/03/17 09:40 OT Evaluation and Treatment [CONS] Routine 02/03/17 09:41 Metoprolol Tartrate [Lopressor] 75 mg PO BID 02/03/17 12:10 PTT,PARTIAL THROMBOPLSTIN TIME [COAG] Routine 02/03/17 14:00 Warfarin [Coumadin] 5 mg PO ONETIME ONE 02/04/17 05:11 INR,PT,PROTHROMBIN TIME [COAG] AM 02/04/17 05:15 BASIC METABOLIC PANEL,BMP [CHEM] AM CBC WITH AUTO DIFF [HEME] AM 02/05/17 05:11 INR,PT,PROTHROMBIN TIME [COAG] AM 02/06/17 05:11 INR,PT,PROTHROMBIN TIME [COAG] AM 02/07/17 05:11 INR,PT,PROTHROMBIN TIME [COAG] AM - Plan Plan:: The patient is an 81-year-old lady with a history of hypertension. The patient has been complaining of increased lower extremity swelling which is moderate to severe associated with shortness of breath. Shortness of breath is worse with activity better with rest. She was seen by her primary care physician last Wednesday and was given diuretics but the swelling did not change significantly. She was noted to have atrial fibrillation in the clinic which is apparently a new finding. She denies cough, no fever no chest pain no abdominal pain. She lives independently in her home. #1 massive lower extremity edema, cardiomegaly, bilateral pleural effusion Likely due to acute congestive heart failure pending echocardiogram for further characterization Continue IV Lasix, start lymphedema wraps decrease to BID due to hypotension stopped potassium supplement due to hyperkalemia Follow electrolytes and renal function test with that hold BIJU inhibitor due to hyoperkalemia and lower BPs Hyperkalemia resolved after Kayexalate treatment Repeat basic metabolic panel in the morning #2 rapid atrial fibrillation This might be the reason for the congestive heart failure continue IV metoprolol and PO metoprolol for rate control Continue digoxin - increase by mouth metoprolol dose Monitor on telemetry and adjust metoprolol as needed #3 thromboembolic risk with atrial fibrillation Started the patient on Coumadin Started weight based heparin nomogram #4 h/o hypertension Now on the lower side Stop Norvasc Stop lisinopril #5 DVT prophylaxis will be with heparin weight-based nomogram Stop the heparin when INR is coming up #6 CODE STATUS was discussed with the patient. She would like to be DNR. Continue to monitor on telemetry
[2017-02-03] MEDS ORDERED: Heparin Sodium 5,000 Units/ML Vial IVPUSH ONE (13:56)
[2017-02-03] MEDS ORDERED: Warfarin 5 MG Tab PO ONE (14:00)
[2017-02-03] MEDS: Acetaminophen 500 MG Tab PO SCH ×2 (14:09→20:55)
--- NOTE | 2017-02-03 15:19 | EKG ---
02/01/2017- JOELLEN BALDERAS - EKG per my reading shows atrial fibrillation with rapid ventricular rate around 150s. [facility] /[id number]
[2017-02-03] MEDS: Enoxaparin 100 MG/1 ML Syringe SUBCUT SCH (20:53)
[2017-02-03] MEDS: Multivitamins,Therapeutic Tab PO SCH (20:54)
[2017-02-03] MEDS: Ascorbic Acid 500 MG Tab PO SCH (20:55)
[2017-02-04] MEDS: Aspirin 81 MG Tab.Chew PO SCH (10:14)
[2017-02-04] MEDS: Digoxin 125 MCG Tab PO SCH (10:15)
[2017-02-04] MEDS: Escitalopram 10 MG Tab PO SCH (10:16)
[2017-02-04] MEDS: Metoprolol Tartrate 25 MG Tab PO SCH ×3 (10:16→21:40)
[2017-02-04] MEDS: Enoxaparin 100 MG/1 ML Syringe SUBCUT SCH ×2 (10:18→20:43)
[2017-02-04] MEDS: Polyethylene Glycol 3350 Powder 17 GM Packet PO SCH ×2 (10:22→20:45)
[2017-02-04] MEDS: Furosemide 20 MG/2 ML VIAL IVPUSH SCH ×2 (10:49→20:39)
[2017-02-04] MEDS ORDERED: Warfarin 5 MG Tab PO ONE (14:00)
[2017-02-04] MEDS: Acetaminophen 500 MG Tab PO SCH ×2 (15:01→20:47)
[2017-02-04] MEDS: Multivitamins,Therapeutic Tab PO SCH (20:46)
[2017-02-04] MEDS: Ascorbic Acid 500 MG Tab PO SCH (20:47)
[2017-02-05 07:43] VITALS: BP 127/88
[2017-02-05] MEDS: Metoprolol Tartrate 50 MG Tab PO SCH ×2 (07:53→09:06)
--- NOTE | 2017-02-05 08:22 | PN ---
Transfer Note: DATE: 02/04/2017 SUBJECTIVE: Mrs. Carlisle is an 81-year-old female who presented with increasing shortness of breath, as well as bilateral lower extremity edema and was found to be in rapid atrial fibrillation. Treatment was started with metoprolol and digoxin with improvement in her ventricular rate. She was started on diuretics and compression wraps to the lower extremities. A new echocardiogram was obtained and it is rather dramatically changed from a previous echocardiogram dated January 20, 2013. The echocardiogram performed on that date showed normal left ventricular size and systolic function with an ejection fraction of greater than 60%. There was grade 3 diastolic dysfunction. Right ventricle was normal in size and function. There was trace mitral regurgitation and moderate tricuspid regurgitation. She also underwent an angiography on July 19, 2012, because of an abnormal stress test. She was found to have no obstructive coronary artery disease, and there were no interventions undertaken, and suggestion was for aggressive medical management only. A new echocardiogram was obtained during this admission on February 02, 2017, and shows the ejection fraction is now severely reduced, less than 25%. There has also been progressive valvular heart disease, and she now has moderate - to-severe mitral regurgitation and severe tricuspid regurgitation. There is also a new moderate-sized pericardial effusion. The right ventricular systolic function is also moderately reduced. In regard to the pericardial effusion, there is no suggestion either clinically or an ultrasound of cardiac tamponade. I spoke with Mrs. Carlisle and her son, Primo, to whom she defers all decision-making , regarding these new findings and their significance. We discussed transfer to [place], so that she may be seen by Cardiology and Cardiothoracic Surgery. They are in agreement with this plan. I spoke with the hospitalist on-call, Dr. Davis, and he accepted the patient in transfer. This will be done tomorrow morning, February 05, 2017. We are expecting the ambulance at about 9 a.m. She will be transferred by ground ambulance and will remain on cardiac telemetry. Throughout the day today, her ventricular rate has ranged anywhere from the low 100's up to about 150. This evening, we did increase her metoprolol from 75 to 100 mg and that seemed to bring about an improvement in her rate overnight from about 110 to 120. She also is on 125 mcg daily of digoxin. Review of her clinical data shows she is taking in adequate fluids. She is in net negative fluid balance with the diuresis. She is tolerating most of her meals. Appetite is good. She is voiding and moving her bowels. Review of her vital signs shows she remains in a rapid atrial fibrillation. Blood pressure this evening did go down a bit to 86/61, and we increased her beta-moy to 100 mg in order to control the rate and bring up the blood pressure. Repeat blood pressure following that did come up to 127/67. Lab work today included a CBC which was unremarkable. INR was 1.5. Chemistry showed normal electrolytes. BUN and creatinine were 22 and 1 with a GFR of 53. PHYSICAL EXAMINATION: General: She is a pleasant elderly lady, somewhat hard of hearing but participates throughout the visit. She expressed no new concerns or issues. She denies any chest pain. She is not short of breath at rest, although she usually becomes short of breath with any type of exertion. Vital Signs: Blood pressure 118/65. Pulse on apical exam is rapid and irregular with a rate between 110 to 130. I believe that they have been using the blood pressure machine to count the pulse and is clearly not picking up correctly, and heart rates have been recorded below 100, but telemetry is consistent with a rapid atrial fibrillation. Respiratory rate 16, oxygen saturation 97% on 1 L, and she has remained afebrile. HEENT: Unremarkable. ENT was clear. Neck: No JVDs or bruits. Chest: Showed clear but diminished bilateral breath sounds. Heart: Showed irregular rate and rhythm with a rate of about 130 on exam. Abdomen: Soft and benign. Extremities: Wrapped in edema wraps. Neurological: Intact. IMPRESSION: The patient presents with rapid atrial fibrillation. Repeat echocardiogram shows that over the 4-year interval since the last echocardiogram, there has been severe decrease in cardiac function. Ejection fraction is now less than 25%. There is severe global hypokinesis of left ventricle and severely reduced left ventricular function and moderately reduced right ventricular function. There is now [id number] mitral regurgitation and severe tricuspid regurgitation. There is no history of ischemic disease. PLAN: She will be transferred in the morning by ground ambulance to [facility] to be further evaluated by Cardiology and Cardiothoracic Surgery. The case was discussed with Dr. Davis, Hospitalist child development consultant, who accepted the patient in transfer. His help in her care is appreciated. [facility] /[id number] WANDA
[2017-02-05] MEDS: Enoxaparin 100 MG/1 ML Syringe SUBCUT SCH (09:05)
[2017-02-05] MEDS: Polyethylene Glycol 3350 Powder 17 GM Packet PO SCH (09:05)
[2017-02-05] MEDS: Furosemide 20 MG/2 ML VIAL IVPUSH SCH (09:05)
[2017-02-05] MEDS: Digoxin 125 MCG Tab PO SCH (09:05)
[2017-02-05] MEDS: Aspirin 81 MG Tab.Chew PO SCH (09:05)
[2017-02-05] MEDS: Sodium Chloride 0.9% 10 ML Syringe FLUSH PRN (09:06)
[2017-02-05] MEDS: Escitalopram 10 MG Tab PO SCH (09:06)
[2017-02-05] MEDS ORDERED: Warfarin 5 MG Tab PO ONE (14:00)
--- NOTE | 2017-02-18 03:06 | DISCH ---
DISCHARGE DIAGNOSES: 1. Acute congestive heart failure. 2. Bilateral lower extremity edema, moderate to severe, cardiomegaly, and bilateral pleural effusions. 3. Increasing shortness of breath. 4. Hypertension. 5. Atrial fibrillation with rapid ventricular rate, new onset. 6. Dramatic decline in cardiac status as evidenced on new echocardiogram obtained during this admission, which showed markedly reduced ejection fraction and progressive valvular heart disease. BRIEF HISTORY OF PRESENT ILLNESS: Mrs. Carlisle is an 81-year-old lady, who presented with the chief complaint of increasing shortness of breath as well as bilateral lower extremity edema. At the time of admission, she was found to be in atrial fibrillation with rapid ventricular rate. She was started on metoprolol and digoxin with improvement in her ventricular rate. She was started on diuretics and compression wraps to the lower extremities. A new echocardiogram was ordered for further evaluation. PERTINENT LABS AND X-RAYS: CBC at the time of admission showed normal white count. Hemoglobin and hematocrit were 13.8 and 41.7. White count and platelets were normal. Chemistry showed normal electrolytes. BUN and creatinine were 20 and 1.0 with a GFR of 53. Troponin was negative at 0.02 and BNP was minimally elevated at 207. Baseline PT, PTT were within normal limits. She was started on anticoagulation and her PT, INR were followed. INR was 2.2 on the day of discharge. IMAGING STUDIES: A single-view chest x-ray taken on the day of admission showed small bilateral pleural effusions with atelectasis at each lung base. These were new findings compared to previous chest x-ray from February 2016. There were no acute infiltrates. An echocardiogram was obtained. A previous echocardiogram had been performed on January 20, 2013, and showed normal left ventricular size and function with an ejection fraction of greater than 60%. There was grade 3 diastolic dysfunction and moderate tricuspid regurgitation. She also underwent angiography in July 2012 and had no evidence of coronary artery obstructive disease. A new echocardiogram was obtained on February 02, 2017, and was markedly different. The ejection fraction was severely reduced at 25% or less. There had been progressive valvular heart disease with the finding of moderate-to- severe mitral regurgitation, as well as severe tricuspid regurgitation. There was severe global hypokinesis of the left ventricle. The right ventricular systolic function was markedly reduced. Both left and right atria were mildly dilated. There was a moderate size pericardial effusion without evidence for tamponade. HOSPITAL COURSE: Mrs. Carlisle was admitted and initially her atrial fibrillation was treated with beta-blockers and digoxin, and she was started on anticoagulation, and at the time of discharge had a therapeutic INR. Overall, she was feeling better. However, with the findings of the echocardiogram and dramatic changes over the 4-year interval, it was decided that it should be discussed with Cardiology. The case was discussed with the hospitalist on-call, who accepted the patient in transfer; evaluations will be ordered from Cardiology and Cardiothoracic Surgery. During the admission, her rapid ventricular rate associated with her atrial fibrillation was more controlled; however, it continued to at times range from the low 100 to about 150. Her metoprolol was increased from 75 to 100 mg on the evening prior to discharge. Findings were discussed at length with Mrs. Carlisle and her son, Primo. She defers all decision making to him. They agreed with transfer to [place], and she will be transferred by ground ambulance for direct admission to [facility] with consultation of Cardiology and Cardiothoracic Surgery. PHYSICAL EXAMINATION: General: She was sitting comfortably in bed. She was not short of breath at rest, although she still became short of breath with any type of exertion. Vital Signs: Blood pressure was 118/65, apical pulse rate ranged from 110 to 130, respiratory rate 16, oxygen saturation 97% on 1 L. She is afebrile. HEENT: Unremarkable. No JVDs or bruits. Chest: Showed clear but diminished bilateral breath sounds. Heart: Showed an irregular rate and rhythm with a rate of 110 to 130 on exam. Abdomen: Soft and benign. Extremities: Wrapped in edema wraps. Neurological: She was intact. PREVIOUS HOME MEDICATIONS AT THE TIME OF DISCHARGE: 1. Amlodipine 5 mg daily. 2. Lisinopril 20 mg twice a day. 3. Lexapro 10 mg daily. 4. Aspirin EC 81 mg daily. Other medications include: 1. MiraLax. 2. Multivitamin. 3. Calcium and vitamin D. 4. Vitamin C. 5. Tylenol. MEDICATIONS USED DURING THIS ADMISSION: Warfarin, digoxin, metoprolol tartrate, Lopressor IV and IV furosemide. Her last dose of Coumadin prior to discharge had been 5 mg. She will be transferred by ground ambulance directly to [facility] in [place]. CONDITION AT THE TIME OF TRANSFER: Hemodynamically and neurologically stable. [facility] /[id number] WANDA
== END 2017-02-05 10:15 | DRG 310 ==
LOC: DL.MS 16:33
PROVIDERS: ADMIT Internal Medicine; ATTEND Internal Medicine
DX: I48.91 Unspecified atrial fibrillation (principal); I11.0 Hypertensive heart disease with heart failure; I50.9 Heart failure, unspecified; R06.00 Dyspnea, unspecified; Z79.82 Long term (current) use of aspirin; Z79.899 Other long term (current) drug therapy; E78.00 Pure hypercholesterolemia, unspecified; R00.0 Tachycardia, unspecified; R60.9 Edema, unspecified; Z66 Do not resuscitate; E87.5 Hyperkalemia; I08.1 Rheumatic disorders of both mitral and tricuspid valves
CPT/HCPCS: 36415; 71010; 80048; 83880; 84484; 85025; 85610; 85730; 93005; 93306; 97140-GO; 97165-GO; A9270-GY; J1160; J1644; J1650; J1940; J3490; J7050

== ENCOUNTER → 2018-09-09 | Outpatient (CLI) | payer MEDICARE, BC | LOC: DL.LAB 15:45 | PROVIDERS: ATTEND Nurse Practitioner | DX: I48.91 Unspecified atrial fibrillation (principal) | CPT/HCPCS: 36415; 85610; 99212 ==

== ENCOUNTER 2022-03-26 05:09 | Emergency (ER) | payer MEDICARE, BC ==
[2022-03-26 05:29] VITALS: BP 134/86; PULSE 85
[2022-03-26] MEDS: Ondansetron 4 MG/2 ML SDV IVPUSH ONE (05:47)
[2022-03-26] MEDS: Fluorescein 1 MG Ophth Strip EYERT ONE (05:47)
[2022-03-26] MEDS: Tetracaine HCl/PF 0.5% 4 ML Bottle EYERT ONE (05:47)
[2022-03-26] MEDS: Morphine 2 MG/ML SYRINGE IVPUSH ONE (05:47)
[2022-03-26 07:41] LABS: ANION GAP 8.1 mEq/L (7-13); CHLORIDE,CL 97 mmol/L (98-107); SODIUM,NA 137 mmol/L (136-145)
[2022-03-26 07:45] LABS: ESTIMATED GFR 40 mL/min (>=60)
[2022-03-26] MEDS: Acyclovir 200 MG Cap PO ONE ×2 (08:24→16:57)
[2022-03-26] MEDS: Dexamethasone/Neomycin/Polymyxin B Ophth Susp 5 ML Bottle EYERT ONE ×2 (08:25→12:34)
[2022-03-26] MEDS: Acetaminophen 500 MG Tab PO ONE ×2 (09:30→16:56)
[2022-03-26] MEDS ORDERED: Dexamethasone/Neomycin/Polymyxin B Ophth Susp 5 ML Bottle EYERT ONE (16:36)
[2022-03-26] MEDS ORDERED: Acyclovir 200 MG Cap PO ONE (16:37)
== END 2022-03-26 17:07 ==
LOC: DL.ED 05:09
DX: B02.30 Zoster ocular disease, unspecified (principal); G91.9 Hydrocephalus, unspecified; I11.0 Hypertensive heart disease with heart failure; I50.9 Heart failure, unspecified; G30.9 Alzheimer's disease, unspecified; F32.A Depression, unspecified; Z20.822 Contact with and (suspected) exposure to COVID-19; Z79.899 Other long term (current) drug therapy
CPT/HCPCS: 36415; 70450; 80053; 83605; 85025; 85610; 87040; 96374; 96375; 99285; A9270; J2270; J2405; U0002; 99284

== ENCOUNTER 2022-11-11 18:49 | Observation (INO) | payer MEDICARE, BC ==
[2022-11-11 19:46] LABS: BASOPHILS PERCENT AUTO 0.6 % (0.0-1.0); EOSINOPHILS PERCENT AUTO 2.2 % (1.0-3.0); HEMOGLOBIN 13.4 g/dL (12.0-16.0); LYMPHOCYTES PERCENT AUTO 22.8 % (20.5-50.1); MEAN CORPUSCULAR HEMOGLOBIN 31.5 pg (27.0-34.0); MEAN CORPUSCULAR HGB CONC 33.5 g/dL (33.0-35.0); MEAN CORPUSCULAR VOLUME 94.1 fL (80-100); MONOCYTES PERCENT AUTO 8.7 % (2-8); NEUTROPHILS PERCENT AUTO 65.7 % (42.2-75.2); PLATELET COUNT,PLT 175 10^3/uL (150-450); RED BLOOD CELL COUNT 4.25 10^6/uL (4.2-5.4); WHITE BLOOD CELL COUNT,WBC 7.8 10^3/uL (5.0-10.0)
[2022-11-11 20:03] LABS: INR 2.3 (0.9-1.2); PROTHROMBIN TIME 22.9 SEC (9.0-12.0); PTT,PARTIAL THROMBOPLSTIN TIME 35.5 SEC (22.0-34.0)
[2022-11-11 20:04] LABS: B-TYPE NATRIURETIC PEPTIDE,BNP 280 pg/ml (0-100)
[2022-11-11 20:12] LABS: LACTIC ACID 1.2 mmol/L (0.4-2.0)
[2022-11-11 20:18] LABS: A/G RATIO 1.2; ALANINE AMINOTRANSFERASE,ALT 16 U/L (14-59); ALBUMIN 3.4 g/dL (3.4-5.0); ALKALINE PHOSPHATASE 91 U/L (46-116); ANION GAP 10.2 mEq/L (7-13); ASPARTATE AMNIOTRANSFERASE,AST 15 U/L (15-37); BILIRUBIN TOTAL 1.7 mg/dL (0.2-1.0); BLOOD UREA NITROGEN,BUN 19 mg/dL (7-18); BUN/CREATININE RATIO 14.3 (No establ ref range); CALCIUM 9.4 mg/dL (8.5-10.1); CARBON DIOXIDE,CO2 31 mmol/L (21-32); CHLORIDE,CL 102 mmol/L (98-107); CREATININE 1.33 mg/dL (0.55-1.02); EST CRCL DRUG DOSING (CG) 28.93 mL/min; GLUCOSE RANDOM 163 mg/dL (70-99); MAGNESIUM 2.1 mg/dL (1.8-2.4); POTASSIUM,K 4.2 mmol/L (3.5-5.1); PROTEIN TOTAL,TP 6.2 g/dL (6.4-8.2); SODIUM,NA 139 mmol/L (136-145); TSH ULTRASENSITIVE 0.93 uIU/mL (0.36-3.74)
[2022-11-11 20:22] LABS: ESTIMATED GFR 38 mL/min (>=60)
[2022-11-11] MEDS ORDERED: Sodium Chloride 0.9% 10 ML Syringe FLUSH PRN (21:38)
[2022-11-11] MEDS ORDERED: Acetaminophen 325 MG Tab PO PRN (21:38)
[2022-11-11] MEDS ORDERED: WARFARIN SODIUM 3 MG PO SCH (21:45)
[2022-11-11 22:14] LABS: APPEARANCE,URINE CLEAR (CLEAR); BILIRUBIN,URINE NEGATIVE (NEGATIVE); COLOR,URINE YELLOW (YELLOW); GLUCOSE,URINE NEGATIVE (NEGATIVE); KETONES,URINE NEGATIVE (NEGATIVE); LEUKOCYTE ESTERASE,URINE SMALL (NEGATIVE); NITRITE,URINE NEGATIVE (NEGATIVE); OCCULT BLOOD,URINE LARGE (NEGATIVE); PH,URINE 5.5 (5.0-9.0); PROTEIN,URINE NEGATIVE (NEGATIVE); UROBILINOGEN,URINE 0.2 mg/dL (0.2-1.0)
[2022-11-11 22:35] LABS: BACTERIA,URINE MANY /HPF (0-FEW/HPF); EPITHELIAL CELLS,URINE FEW /HPF (NOT SEEN); MUCUS,URINE MODERATE /LPF (NOT SEEN); RBC,URINE 50-75 /HPF (0-5); WBC,URINE 40-50 /HPF (0-5/HPF)
[2022-11-12] MEDS ORDERED: POLYETHYLENE GLYCOL PO SCH (09:00)
[2022-11-12] MEDS ORDERED: POTASSIUM CHLORIDE 20 MEQ PO SCH (10:00)
[2022-11-12] MEDS ORDERED: FUROSEMIDE 40 MG PO SCH (10:00)
[2022-11-12] MEDS ORDERED: DIGOXIN 125 MCG PO SCH (10:00)
[2022-11-12] MEDS ORDERED: GABAPENTIN 600 MG PO SCH (10:00)
[2022-11-12] MEDS ORDERED: ESCITALOPRAM 20 MG PO SCH (10:00)
[2022-11-12 10:44] VITALS: BP 112/64; PULSE 68
[2022-11-12] MEDS ORDERED: METOPROLOL SUCCINATE 100 MG PO SCH (11:00)
[2022-11-12] MEDS ORDERED: MULTIVITAMIN PO SCH (21:00)
[2022-11-12] MEDS ORDERED: Nitrofurantoin Monohydrate/Macrocrystalline 100 MG Cap PO SCH (21:00)
[2022-11-14] MEDS ORDERED: WARFARIN 3 MG PO SCH (14:00)
== END 2022-11-12 11:20 ==
LOC: DL.ED 18:49 → DL.MS 21:02 → DL.ED 21:28
PROVIDERS: ADMIT Internal Medicine; ATTEND Internal Medicine
DX: I48.91 Unspecified atrial fibrillation (principal); N39.0 Urinary tract infection, site not specified; I42.9 Cardiomyopathy, unspecified; I11.0 Hypertensive heart disease with heart failure; I50.9 Heart failure, unspecified; E78.00 Pure hypercholesterolemia, unspecified; F41.9 Anxiety disorder, unspecified; F32.A Depression, unspecified; G30.9 Alzheimer's disease, unspecified; F02.80 Dementia in other diseases classified elsewhere, unspecified severity, without behavioral disturbance, psychotic disturbance, mood disturbance, and anxiety; M81.0 Age-related osteoporosis without current pathological fracture; Z79.899 Other long term (current) drug therapy; Z79.01 Long term (current) use of anticoagulants; Z98.890 Other specified postprocedural states; Z90.49 Acquired absence of other specified parts of digestive tract; Z90.710 Acquired absence of both cervix and uterus
CPT/HCPCS: 36415; 71045; 80053; 80162; 81001; 83605; 83735; 83880; 84145; 84443; 84484; 85025; 85610; 85730; 87086; 93005; 93010; 99284; 99285; A9270-GY; G0378